=== PATIENT | female | born 2000 | race Caucasian/White ===

== ENCOUNTER 2019-10-01 12:32 | Inpatient (IN) | payer OTHER ==
[2019-10-01] MEDS ORDERED: Ondansetron 4 MG/2 ML SDV IVPUSH ONE ×2 (12:47→16:35)
[2019-10-01] MEDS ORDERED: Morphine 4 MG/ML Syringe IVPUSH ONE (12:47)
[2019-10-01] MEDS ORDERED: Sodium Chloride 0.9% 1,000 ML IV ONE ×2 (12:47→15:23)
--- NOTE | 2019-10-01 12:50 | EDM.PDOC ---
ED HPI GENERAL MEDICAL PROBLEM - General Chief Complaint: Gastrointestinal Problem Stated Complaint: PAIN IN RIGHT SIDE/VOMITING/CHILLS Time Seen by Provider: 10/01/19 12:43 Source of Information: Reports: Patient, Family History Limitations: Reports: No Limitations - History of Present Illness INITIAL COMMENTS - FREE TEXT/NARRATIVE: Patient's unfortunate 18-year-old female who presents emergency Department today with complaint of right-sided abdominal pain. Patient reports that symptoms started 2 days ago and progressively worsened since last night patient started running fever today she's been vomiting and not able to keep any food or fluids down. No cough congestion runny nose shortness of breath. The pain as a sharp stabbing type pain pain is improved with heating pad worsened with movement and/or palpation and/or eating Right Abdomen Pain Score (Numeric/FACES): 8 - Related Data Allergies Allergy/AdvReac Type Severity Reaction Status Date / Time No Known Allergies Allergy Verified 10/01/19 12:47 Home Meds: Home Meds . [No Known Home Meds] 10/01/19 [History] ED ROS GENERAL - Review of Systems Review Of Systems: See Below Constitutional: Reports: Fever, Chills GI/Abdominal: Reports: Abdominal Pain, Nausea, Vomiting. Denies: Diarrhea, Hematemesis, Hematochezia, Melena : Denies: Discharge, Dysuria, Hematuria, Incontinence ED EXAM, GI/ABD - Physical Exam Exam: See Below Exam Limited By: No Limitations General Appearance: Alert, WD/WN, Moderate Distress Ears: Normal External Exam, Normal Canal, Hearing Grossly Normal, Normal TMs Throat/Mouth: Normal Inspection, Normal Lips, Normal Teeth, Normal Gums, Normal Oropharynx, Normal Voice, No Airway Compromise Head: Atraumatic, Normocephalic Neck: Normal Inspection, Supple, Non-Tender, Full Range of Motion Respiratory/Chest: No Respiratory Distress, Lungs Clear, Normal Breath Sounds, No Accessory Muscle Use, Chest Non-Tender Cardiovascular: Normal Peripheral Pulses GI/Abdominal Exam: Normal Bowel Sounds, Soft, Tender (Moderate right lower quadrant. Positive McBurney's tenderness, positive rebound tenderness, positive psoas, positive obturator) Back Exam: Normal Inspection Extremities: Normal Inspection Neurological: Alert Skin Exam: Warm, Dry, No Rash Course - Vital Signs Last Recorded V/S: Last Vital Signs Temp 100.6 F 10/01/19 12:43 Pulse 100 10/01/19 12:43 Resp 14 10/01/19 12:43 BP 116/102 H 10/01/19 12:43 Pulse Ox 100 10/01/19 12:43 - Orders/Labs/Meds Orders: Active Orders 24 hr Category Date Time Status NPO [Nothing Per Oral Diet] [DIET] Diet 10/01/19 Dinner Active CULTURE URINE [RM] Stat Lab 10/01/19 13:21 Received Sodium Chloride 0.9% [Saline Flush] Med 10/01/19 12:47 Active 10 ml FLUSH ASDIRECTED PRN cefTRIAXone [Rocephin] 2 gm Med 10/01/19 15:17 Ordered Sodium Chloride 0.9% [Normal Saline] 100 ml IV ONETIME Saline Lock Insert [OM.PC] Stat Oth 10/01/19 12:47 Ordered Medication Orders Sodium Chloride (Saline Flush) 10 ml FLUSH ASDIRECTED PRN PRN Reason: Keep Vein Open Last Admin: 10/01/19 14:38 Dose: 10 ml Admin: 10/01/19 12:59 Dose: 10 ml Labs: Laboratory Tests 10/01/19 10/01/19 10/01/19 Range/Units 12:55 12:55 12:55 WBC 26.83 H (3.98-10.04) K/mm3 RBC 5.02 (3.98-5.22) M/mm3 Hgb 14.5 D (11.2-15.7) gm/dl Hct 43.0 (34.1-44.9) % MCV 85.7 (79.4-94.8) fl MCH 28.9 (25.6-32.2) pg MCHC 33.7 (32.2-35.5) g/dl RDW Std Deviation 42.3 (36.4-46.3) fL Plt Count 244 (182-369) K/mm3 MPV 10.1 (9.4-12.3) fl Neut % (Auto) 92.4 H (34.0-71.1) % Lymph % (Auto) 1.9 L (19.3-51.7) % [place] % (Auto) 5.3 (4.7-12.5) % Eos % (Auto) 0 L (0.7-5.8) Baso % (Auto) 0.1 (0.1-1.2) % Neut # (Auto) 24.80 H (1.56-6.13) K/mm3 Lymph # (Auto) 0.50 L (1.18-3.74) K/mm3 [place] # (Auto) 1.43 H (0.24-0.36) K/mm3 Eos # (Auto) 0.00 L (0.04-0.36) K/mm3 Baso # (Auto) 0.02 (0.01-0.08) K/mm3 Manual Slide Review Abnormal smear Sodium 138 (136-145) mEq/L Potassium 3.9 (3.5-5.1) mEq/L Chloride 100 (98-107) mEq/L Carbon Dioxide 25 (21-32) mEq/L Anion Gap 16.9 H (5-15) BUN 13 (7-18) mg/dL Creatinine 1.2 H (0.55-1.02) mg/dL Est Cr Clr Drug Dosing 65.11 mL/min Estimated GFR (MDRD) 58 (>60) mL/min BUN/Creatinine Ratio 10.8 L (14-18) Glucose 153 H (74-106) mg/dL Calcium 9.5 (8.5-10.1) mg/dL Total Bilirubin 0.8 (0.2-1.0) mg/dL AST 17 (15-37) U/L ALT 22 (14-59) U/L Alkaline Phosphatase 62 (46-116) U/L Total Protein 8.5 H (6.4-8.2) g/dl Albumin 4.0 (3.4-5.0) g/dl Globulin 4.5 gm/dL Albumin/Globulin Ratio 0.9 L (1-2) HCG, Qual Negative (NEGATIVE) Urine Color (Yellow) Urine Appearance (Clear) Urine pH (5.0-8.0) Ur Specific [place] (1.005-1.030) Urine Protein (Negative) Urine Glucose (UA) (Negative) Urine Ketones (Negative) Urine Occult Blood (Negative) Urine Nitrite (Negative) Urine Bilirubin (Negative) Urine Urobilinogen (0.2-1.0) Ur Leukocyte Esterase (Negative) Urine RBC (0-5) /hpf Urine WBC (0-5) /hpf Ur Epithelial Cells (0-5) /hpf Urine Bacteria (FEW) /hpf Urine Mucus (FEW) /hpf 10/01/19 Range/Units 13:21 WBC (3.98-10.04) K/mm3 RBC (3.98-5.22) M/mm3 Hgb (11.2-15.7) gm/dl Hct (34.1-44.9) % MCV (79.4-94.8) fl MCH (25.6-32.2) pg MCHC (32.2-35.5) g/dl RDW Std Deviation (36.4-46.3) fL Plt Count (182-369) K/mm3 MPV (9.4-12.3) fl Neut % (Auto) (34.0-71.1) % Lymph % (Auto) (19.3-51.7) % [place] % (Auto) (4.7-12.5) % Eos % (Auto) (0.7-5.8) Baso % (Auto) (0.1-1.2) % Neut # (Auto) (1.56-6.13) K/mm3 Lymph # (Auto) (1.18-3.74) K/mm3 [place] # (Auto) (0.24-0.36) K/mm3 Eos # (Auto) (0.04-0.36) K/mm3 Baso # (Auto) (0.01-0.08) K/mm3 Manual Slide Review Sodium (136-145) mEq/L Potassium (3.5-5.1) mEq/L Chloride (98-107) mEq/L Carbon Dioxide (21-32) mEq/L Anion Gap (5-15) BUN (7-18) mg/dL Creatinine (0.55-1.02) mg/dL Est Cr Clr Drug Dosing mL/min Estimated GFR (MDRD) (>60) mL/min BUN/Creatinine Ratio (14-18) Glucose (74-106) mg/dL Calcium (8.5-10.1) mg/dL Total Bilirubin (0.2-1.0) mg/dL AST (15-37) U/L ALT (14-59) U/L Alkaline Phosphatase (46-116) U/L Total Protein (6.4-8.2) g/dl Albumin (3.4-5.0) g/dl Globulin gm/dL Albumin/Globulin Ratio (1-2) HCG, Qual (NEGATIVE) Urine Color Yellow (Yellow) Urine Appearance Slt cloudy H (Clear) Urine pH 8.5 H (5.0-8.0) Ur Specific [place] 1.020 (1.005-1.030) Urine Protein 2+ H (Negative) Urine Glucose (UA) Negative (Negative) Urine Ketones 1+ H (Negative) Urine Occult Blood 1+ H (Negative) Urine Nitrite Positive H (Negative) Urine Bilirubin Negative (Negative) Urine Urobilinogen 1.0 (0.2-1.0) Ur Leukocyte Esterase 1+ H (Negative) Urine RBC 50-75 H (0-5) /hpf Urine WBC >100 H (0-5) /hpf Ur Epithelial Cells 10-20 H (0-5) /hpf Urine Bacteria Moderate H (FEW) /hpf Urine Mucus Few (FEW) /hpf Meds: Medications Generic Name Dose Route Start Last Admin Trade Name Freq PRN Reason Stop Dose Admin Sodium Chloride 10 ml 10/01/19 12:47 10/01/19 14:38 Saline Flush FLUSH 10 ml ASDIRECTED PRN Administration Keep Vein Open Discontinued Medications Generic Name Dose Route Start Last Admin Trade Name Freq PRN Reason Stop Dose Admin Diatrizoate Meglum/Diatrizoate Sod 90 ml 10/01/19 14:23 10/01/19 14:38 Gastrografin 37% PO 10/01/19 14:24 90 ml ONETIME ONE Administration Hydromorphone HCl 0.5 mg 10/01/19 14:14 10/01/19 14:20 Dilaudid IVPUSH 10/01/19 14:15 0.5 mg ONETIME ONE Administration Hydromorphone HCl 0.5 mg 10/01/19 14:47 10/01/19 14:54 Dilaudid IVPUSH 10/01/19 14:48 0.5 mg ONETIME ONE Administration Sodium Chloride 1,000 mls @ 1,000 mls/hr 10/01/19 12:47 10/01/19 12:58 Normal Saline IV 10/01/19 13:46 1,000 mls/hr ONETIME ONE Administration Piperacillin Sod/Tazobactam 100 mls @ 200 mls/hr 10/01/19 13:50 10/01/19 14: 11 Sod 3.375 gm/ Sodium Chloride IV 10/01/19 14:19 200 mls/hr ONETIME ONE Administration Iopamidol 100 ml 10/01/19 14:23 10/01/19 14:38 Isovue-300 (61%) IVPUSH 10/01/19 14:24 100 ml ONETIME ONE Administration Morphine Sulfate 4 mg 10/01/19 12:47 10/01/19 13:01 Morphine IVPUSH 10/01/19 12:48 4 mg ONETIME ONE Administration Ondansetron HCl 4 mg 10/01/19 12:47 10/01/19 12:59 Zofran IVPUSH 10/01/19 12:48 4 mg ONETIME ONE Administration - Re-Assessments/Exams Free Text/Narrative Re-Assessment/Exam: 10/01/19 15:13 The abdomen is soft and pelvis shows"Heterogenous enhancement throughout the right kidney with mild surrounding inflammatory change. Findings are compatible with fairly severe right-sided polynephritis." Free Text/Narrative Re-Assessment/Exam: 10/01/19 15:[address] Alfaro who agrees to admit patient to inpatient services Departure - Departure Time of Disposition: 15:18 Disposition: Admitted As Inpatient 65 Clinical Impression: Pyelonephritis - Discharge Information Referrals: PCP,None [Primary Care Provider] - Forms: ED Department Discharge Sepsis Event Note - Evaluation Sepsis Screening Result: No Definite Risk - Focused Exam Vital Signs: Vital Signs Temp Pulse Resp BP Pulse Ox 10/01/19 12:43 100.6 F 100 14 116/102 H 100 Date Exam was Performed: 10/01/19 Time Exam was Performed: 15:18 - My Orders Last 24 Hours: My Active Orders 10/01/19 12:47 Sodium Chloride 0.9% [Saline Flush] 10 ml FLUSH ASDIRECTED PRN Saline Lock Insert [OM.PC] Stat 10/01/19 13:21 CULTURE URINE [RM] Stat 10/01/19 15:17 cefTRIAXone [Rocephin] 2 gm Sodium Chloride 0.9% [Normal Saline] 100 ml IV ONETIME 10/01/19 Dinner NPO [Nothing Per Oral Diet] [DIET] - Assessment/Plan Last 24 Hours: My Active Orders 10/01/19 12:47 Sodium Chloride 0.9% [Saline Flush] 10 ml FLUSH ASDIRECTED PRN Saline Lock Insert [OM.PC] Stat 10/01/19 13:21 CULTURE URINE [RM] Stat 10/01/19 15:17 cefTRIAXone [Rocephin] 2 gm Sodium Chloride 0.9% [Normal Saline] 100 ml IV ONETIME 10/01/19 Dinner NPO [Nothing Per Oral Diet] [DIET]
[2019-10-01] MEDS: Sodium Chloride 0.9% 10 ML Syringe FLUSH PRN ×2 (12:59→14:38)
[2019-10-01] MEDS ORDERED: Piperacillin/Tazobactam 3.375 GM in Sodium Chloride 0.9% 100 ML IV ONE (13:50)
[2019-10-01] MEDS ORDERED: HYDROmorphone 0.5 MG/0.5 ML Syringe IVPUSH ONE ×2 (14:14→14:47)
[2019-10-01] MEDS ORDERED: Iopamidol 612 MG/ML 100 ML Bottle IVPUSH ONE (14:23)
[2019-10-01] MEDS ORDERED: Diatrizoate Meglumine/Diatrizoate Sodium 37% 120 ML Bottle PO ONE (14:23)
--- NOTE | 2019-10-01 15:05 | CT ---
CT abdomen and pelvis Technique: Multiple axial sections were obtained from above the dome of the diaphragm inferiorly through the pubic symphysis. Intravenous and oral contrast was utilized. Delayed images were obtained through the bladder. Comparison: No prior abdominal imaging is available. Findings: Heterogeneous enhancement is noted within the right kidney compatible with fairly severe pyelonephritis. Mild inflammatory change is also noted around portions of the lower right kidney. Left kidney is normal. Other findings: Visualized lung bases show nothing acute. Noncontrast appearance of the liver and spleen shows no focal abnormality. Gallbladder contains no calcified gallstones. Adrenal glands show no nodule. Pancreas appears within normal limits. Aorta shows no aneurysm. No retroperitoneal adenopathy or mesenteric abnormalities are seen. Appendix is visualized and is normal. IUD is present within the uterus. No free fluid or inflammatory change is seen within the abdomen. Delayed images shows contrast within the distal ureters and within the bladder. Bone window settings were reviewed. Incidental limbus vertebra noted within the anterior and superior endplate of L5. Nothing acute is appreciated within the visualized osseous structures. Impression: 1. Heterogeneous enhancement throughout the right kidney with mild surrounding inflammatory change. Findings are compatible with fairly severe right-sided pyelonephritis. 2. No other acute finding is seen on CT study of the abdomen and pelvis. Diagnostic code #3 This report was dictated in [place] Standard Time
[2019-10-01] MEDS ORDERED: cefTRIAXone 2 GM in Sodium Chloride 0.9% 100 ML IV ONE (15:17)
[2019-10-01] MEDS ORDERED: HYDROmorphone 1 MG/ML Syringe IVPUSH ONE (16:34)
[2019-10-01] MEDS ORDERED: Ketorolac 15 MG/ML SDV IVPUSH PRN (17:14)
[2019-10-01] MEDS ORDERED: Ondansetron 4 MG/2 ML SDV IV PRN (17:14)
--- NOTE | 2019-10-01 17:19 | PCM.HP.2 ---
H&P History of Present Illness - General Date of Service: 10/01/19 Admit Problem/Dx: Admission Diagnosis/Problem Admission Diagnosis/Problem Pyelonephritis - History of Present Illness Initial Comments - Free Text/Narative: 18-year-old female that presented to the emergency room this afternoon with right lower quadrant and flank pain with chills. Patient states that on Wednesday she developed a fever of 103, right lower quadrant and flank pain, and then on Wednesday started developing chills. She denies any dysuria, urinary frequency, or hematuria. She states on Wednesday night, Wednesday morning she developed vomiting and vomited into the supervisor of instruction on Wednesday. This is when she did present herself to the emergency room. She states that she has been unable to keep any food or fluids down for the last 24+ hours. Patient complains of severe lower abdominal pain. Patient is sexually active. She has a Mirena in place for control. Menstrual period in May. In the emergency room she was found to have a positive UA with greater than 100 WBCs per high-power field, positive nitrites, 10-20 epithelial cells, moderate bacteria, and 50-[address] scan done of the abdomen and pelvis showed impression: 1. Heterogeneous enhancement throughout the right kidney with mild surrounding inflammatory change. Findings are compatible with fairly severe right-sided pyelonephritis. 2. No other acute finding is seen on CT study of the abdomen and pelvis. Other pertinent positives include: WBC 26.83 with 24.8 absolute neutrophils and 92.4% neutrophils, creatinine 1.2 with an estimated GFR 58. Pertinent negative includes negative hCG, normal liver function tests, hemoglobin 14.5, platelets of 244. In the emergency room patient was given Zosyn and ceftriaxone. She was also given 2 L normal saline boluses and started on 100 mL of normal saline per hour. Patient was also given Dilaudid and morphine for her pain which did not seem to help her pain. Lactic acid was not drawn. Right Abdomen Pain Score (Numeric/FACES): 8 - Related Data Allergies/Adverse Reactions: Allergies Allergy/AdvReac Type Severity Reaction Status Date / Time No Known Allergies Allergy Verified 10/01/19 12:47 Home Medications: Home Meds . [No Known Home Meds] 10/01/19 [History] Past Medical History - Past Health History Medical/Surgical History: Denies Medical/Surgical History Other Musculoskeletal History: scolois Neurological History: Reports: None Social & Family History - Family History Family Medical History: Noncontributory - Tobacco Use Smoking Status *Q: Current Every Day Smoker Years of Tobacco use: 2 Packs/Tins Daily: 0.5 Used Tobacco, but Quit: No Second Hand Smoke Exposure: No - Caffeine Use Caffeine Use: Reports: None - Alcohol Use Days Per Week of Alcohol Use: 0 Number of Drinks Per Day: 2 Total Drinks Per Week: 0 - Recreational Drug Use Recreational Drug Use: Yes Recreational Drug Type: Reports: Marijuana/Hashish Other Recreational Drug Type: daily last on on 09/30/19 at 1500 Recreational Drug Use Frequency: Daily H&P Review of Systems - Review of Systems: Review Of Systems: Comprehensive ROS is negative, except as noted in HPI. Exam - Exam Exam: See Below - Vital Signs Vital Signs: Last Vital Signs Temp 100.6 F 10/01/19 12:43 Pulse 100 10/01/19 12:43 Resp 14 10/01/19 12:43 BP 116/102 H 10/01/19 12:43 Pulse Ox 100 10/01/19 12:43 Weight: 130 lb 11.2 oz - Exam General: Alert, Oriented, 4 HEENT: Conjunctiva Clear, EOMI, Hearing Intact, Mucosa Moist & [place], Pupils Equal Neck: Supple, Trachea Midline, 2 Lungs: Clear to Auscultation, Normal Respiratory Effort Cardiovascular: Regular Rate, Regular Rhythm, Normal S1, Normal S2 GI/Abdominal Exam: Soft, No Distention, Tender (Right lower quadrant tenderness with CVA tenderness on the right.), Abnormal Bowel Sounds (Diffusely decreased) Back Exam: Normal Inspection Extremities: Normal Inspection, Normal Range of Motion, Non-Tender, No Pedal Edema, Normal Capillary Refill Skin: Warm, Dry, Intact Neuro Extensive - Mental Status: Alert, Oriented x3, Normal Mood/Affect, Normal Cognition, Memory Intact Neuro Extensive - Motor, Sensory, Reflexes: CN II-XII Intact, Normal Gait Psychiatric: Alert, Normal Affect, Normal Mood - Patient Data Lab Results Last 24 hrs: Laboratory Results - last 24 hr 10/01/19 10/01/19 10/01/19 Range/Units 12:55 12:55 12:55 WBC 26.83 H (3.98-10.04) K/mm3 RBC 5.02 (3.98-5.22) M/mm3 Hgb 14.5 D (11.2-15.7) gm/dl Hct 43.0 (34.1-44.9) % MCV 85.7 (79.4-94.8) fl MCH 28.9 (25.6-32.2) pg MCHC 33.7 (32.2-35.5) g/dl RDW Std Deviation 42.3 (36.4-46.3) fL Plt Count 244 (182-369) K/mm3 MPV 10.1 (9.4-12.3) fl Neut % (Auto) 92.4 H (34.0-71.1) % Lymph % (Auto) 1.9 L (19.3-51.7) % [place] % (Auto) 5.3 (4.7-12.5) % Eos % (Auto) 0 L (0.7-5.8) Baso % (Auto) 0.1 (0.1-1.2) % Neut # (Auto) 24.80 H (1.56-6.13) K/mm3 Lymph # (Auto) 0.50 L (1.18-3.74) K/mm3 [place] # (Auto) 1.43 H (0.24-0.36) K/mm3 Eos # (Auto) 0.00 L (0.04-0.36) K/mm3 Baso # (Auto) 0.02 (0.01-0.08) K/mm3 Manual Slide Review Abnormal smear Sodium 138 (136-145) mEq/L Potassium 3.9 (3.5-5.1) mEq/L Chloride 100 (98-107) mEq/L Carbon Dioxide 25 (21-32) mEq/L Anion Gap 16.9 H (5-15) BUN 13 (7-18) mg/dL Creatinine 1.2 H (0.55-1.02) mg/dL Est Cr Clr Drug Dosing 65.11 mL/min Estimated GFR (MDRD) 58 (>60) mL/min BUN/Creatinine Ratio 10.8 L (14-18) Glucose 153 H (74-106) mg/dL Calcium 9.5 (8.5-10.1) mg/dL Total Bilirubin 0.8 (0.2-1.0) mg/dL AST 17 (15-37) U/L ALT 22 (14-59) U/L Alkaline Phosphatase 62 (46-116) U/L Total Protein 8.5 H (6.4-8.2) g/dl Albumin 4.0 (3.4-5.0) g/dl Globulin 4.5 gm/dL Albumin/Globulin Ratio 0.9 L (1-2) HCG, Qual Negative (NEGATIVE) Urine Color (Yellow) Urine Appearance (Clear) Urine pH (5.0-8.0) Ur Specific [place] (1.005-1.030) Urine Protein (Negative) Urine Glucose (UA) (Negative) Urine Ketones (Negative) Urine Occult Blood (Negative) Urine Nitrite (Negative) Urine Bilirubin (Negative) Urine Urobilinogen (0.2-1.0) Ur Leukocyte Esterase (Negative) Urine RBC (0-5) /hpf Urine WBC (0-5) /hpf Ur Epithelial Cells (0-5) /hpf Urine Bacteria (FEW) /hpf Urine Mucus (FEW) /hpf 10/01/ Range/Units 13:21 WBC (3.98-10.04) K/mm3 RBC (3.98-5.22) M/mm3 Hgb (11.2-15.7) gm/dl Hct (34.1-44.9) % MCV (79.4-94.8) fl MCH (25.6-32.2) pg MCHC (32.2-35.5) g/dl RDW Std Deviation (36.4-46.3) fL Plt Count (182-369) K/mm3 MPV (9.4-12.3) fl Neut % (Auto) (34.0-71.1) % Lymph % (Auto) (19.3-51.7) % [place] % (Auto) (4.7-12.5) % Eos % (Auto) (0.7-5.8) Baso % (Auto) (0.1-1.2) % Neut # (Auto) (1.56-6.13) K/mm3 Lymph # (Auto) (1.18-3.74) K/mm3 [place] # (Auto) (0.24-0.36) K/mm3 Eos # (Auto) (0.04-0.36) K/mm3 Baso # (Auto) (0.01-0.08) K/mm3 Manual Slide Review Sodium (136-145) mEq/L Potassium (3.5-5.1) mEq/L Chloride (98-107) mEq/L Carbon Dioxide (21-32) mEq/L Anion Gap (5-15) BUN (7-18) mg/dL Creatinine (0.55-1.02) mg/dL Est Cr Clr Drug Dosing mL/min Estimated GFR (MDRD) (>60) mL/min BUN/Creatinine Ratio (14-18) Glucose (74-106) mg/dL Calcium (8.5-10.1) mg/dL Total Bilirubin (0.2-1.0) mg/dL AST (15-37) U/L ALT (14-59) U/L Alkaline Phosphatase (46-116) U/L Total Protein (6.4-8.2) g/dl Albumin (3.4-5.0) g/dl Globulin gm/dL Albumin/Globulin Ratio (1-2) HCG, Qual (NEGATIVE) Urine Color Yellow (Yellow) Urine Appearance Slt cloudy H (Clear) Urine pH 8.5 H (5.0-8.0) Ur Specific [place] 1.020 (1.005-1.030) Urine Protein 2+ H (Negative) Urine Glucose (UA) Negative (Negative) Urine Ketones 1+ H (Negative) Urine Occult Blood 1+ H (Negative) Urine Nitrite Positive H (Negative) Urine Bilirubin Negative (Negative) Urine Urobilinogen 1.0 (0.2-1.0) Ur Leukocyte Esterase 1+ H (Negative) Urine RBC 50-75 H (0-5) /hpf Urine WBC >100 H (0-5) /hpf Ur Epithelial Cells 10-20 H (0-5) /hpf Urine Bacteria Moderate H (FEW) /hpf Urine Mucus Few (FEW) /hpf Result Diagrams: 10/01/19 12:55 10/01/19 12:55 Sepsis Event Note - Evaluation Sepsis Screening Result: No Definite Risk - Focused Exam Vital Signs: Vital Signs Temp Pulse Resp BP Pulse Ox 10/01/19 12:43 100.6 F 100 14 116/102 H 100 Date Exam was Performed: 10/01/19 Time Exam was Performed: 17:58 Problem List Initiated/Reviewed/Updated: Yes Orders Last 24hrs: Active Orders 24 hr Category Date Time Status Patient Status [ADT] Routine ADT 10/01/19 15:29 Active Oxygen Therapy [RC] PRN Care 10/01/19 17:13 Ordered Up ad Whitney [RC] ASDIRECTED Care 10/01/19 17:12 Ordered VTE/DVT Education [RC] PER UNIT ROUTINE Care 10/01/19 17:13 Ordered Vital Signs [RC] Q4H Care 10/01/19 17:13 Ordered Clear Liquid Diet [DIET] Diet 10/01/19 Dinner Ordered C-REACTIVE PROTEIN [CHEM] AM Lab 10/02/19 05:11 Ordered C-REACTIVE PROTEIN [CHEM] AM Lab 10/03/19 05:11 Ordered C-REACTIVE PROTEIN [CHEM] AM Lab 10/04/19 05:11 Ordered C-REACTIVE PROTEIN [CHEM] AM Lab 10/05/19 05:11 Ordered C-REACTIVE PROTEIN [CHEM] AM Lab 10/06/19 05:11 Ordered CBC WITH AUTO DIFF [HEME] AM Lab 10/02/19 05:11 Ordered CBC WITH AUTO DIFF [HEME] AM Lab 10/03/19 05:11 Ordered CBC WITH AUTO DIFF [HEME] AM Lab 10/04/19 05:11 Ordered CBC WITH AUTO DIFF [HEME] AM Lab 10/05/19 05:11 Ordered CBC WITH AUTO DIFF [HEME] AM Lab 10/06/19 05:11 Ordered COMPREHENSIVE METABOLIC PN,CMP [CHEM] AM Lab 10/02/19 05:11 Ordered COMPREHENSIVE METABOLIC PN,CMP [CHEM] AM Lab 10/03/19 05:11 Ordered COMPREHENSIVE METABOLIC PN,CMP [CHEM] AM Lab 10/04/19 05:11 Ordered COMPREHENSIVE METABOLIC PN,CMP [CHEM] AM Lab 10/05/19 05:11 Ordered COMPREHENSIVE METABOLIC PN,CMP [CHEM] AM Lab 10/06/19 05:11 Ordered CULTURE URINE [RM] Stat Lab 10/01/19 13:21 Received GC/CHLAMYDIA BY PCR [MOLEC] Routine Lab 10/01/19 17:17 Ordered MAGNESIUM [CHEM] AM Lab 10/02/19 05:11 Ordered MAGNESIUM [CHEM] AM Lab 10/03/19 05:11 Ordered MAGNESIUM [CHEM] AM Lab 10/04/19 05:11 Ordered MAGNESIUM [CHEM] AM Lab 10/05/19 05:11 Ordered MAGNESIUM [CHEM] AM Lab 10/06/19 05:11 Ordered Acetaminophen [Tylenol] Med 10/01/19 17:15 Ordered 650 mg PO Q6H HYDROmorphone [Dilaudid] Med 10/01/19 17:14 Ordered 1 mg IVPUSH Q2H PRN Ketorolac [Toradol] Med 10/01/19 17:14 Ordered 15 mg IV Q6H PRN Ondansetron [Zofran] Med 10/01/19 17:14 Ordered 4 mg IV Q4H PRN Sodium Chloride 0.9% [Saline Flush] Med 10/01/19 12:47 Active 10 ml FLUSH ASDIRECTED PRN Saline Lock Insert [OM.PC] Stat Oth 10/01/19 12:47 Ordered Resuscitation Status Routine Resus Stat 10/01/19 17:12 Ordered Medication Orders Acetaminophen (Tylenol) 650 mg PO Q6H SEAN Stop: 10/02/19 16:00 Hydromorphone HCl (Dilaudid) 1 mg IVPUSH Q2H PRN PRN Reason: Pain (severe 7-10) Ketorolac Tromethamine (Toradol) 15 mg IV Q6H PRN PRN Reason: Pain (moderate 4-6) Ondansetron HCl (Zofran) 4 mg IV Q4H PRN PRN Reason: Nausea/Vomiting Sodium Chloride (Saline Flush) 10 ml FLUSH ASDIRECTED PRN PRN Reason: Keep Vein Open Last Admin: 10/01/19 14:38 Dose: 10 ml Admin: 10/01/19 12:59 Dose: 10 ml Assessment/Plan Comment:: Assessment * Right sided pyelonephritis * Initial WBC 26.8, UA greater than 100 WBC per high-power field with moderate bacteria, temperature 100.8, anion gap 16.9 * CT of the abdomen: Heterogeneous enhancement throughout the right kidney with mild surrounding inflammatory change. Findings are compatible with fairly severe right-sided pyelonephritis. * Urine done in the emergency room * Blood cultures were not done * Given Rocephin and Zosyn in the emergency room * Anion gap metabolic acidosis * Secondary to pyelonephritis * Acute kidney injury * Likely prerenal due to poor oral intake * Initial BUN 13, creatinine 1.2, estimated GFR 58 Plan * Admit to medical floor * Continue Rocephin 1 g IV every 24 hours * Will hold off on blood cultures unless she develops another fever. * Dilaudid, Toradol, and Tylenol for pain. * Toradol will be dose of 15 mg secondary to her acute kidney injury. Because her acute kidney injury is likely due to poor oral intake there should be very little danger of Toradol worsening her kidney function. We will follow it very closely. * Await urinary culture * Follow CBC, CMP, and C-reactive protein daily until stable * Get lactic acid * Continue IV fluids: Normal saline 100 mL/h until good oral intake * Clear liquid diet * VTE prophylaxis not indicated: VTE score 0 * CODE STATUS: Full code * Length of stay likely 2 to 3 days. - Mortality Measure Prognosis:: Good
[2019-10-01] MEDS: Acetaminophen 325 MG Tab PO SCH ×2 (18:09→23:29)
[2019-10-01 19:42] LABS: C. TRACHOMATIS BY PCR DETECTED; N. GONORRHOEAE BY PCR NOT DETECTED
[2019-10-01] MEDS: HYDROmorphone 0.5 MG/0.5 ML Syringe IVPUSH PRN (19:42)
--- NOTE | 2019-10-01 20:05 | PCM.SN ---
- Free Text/Narrative Note: Her Chlamydia screen did come back positive. She will be started on doxycycline 100 mg twice daily secondary to contraindication of azithromycin with Zofran.
[2019-10-01] MEDS: Doxycycline 100 MG in Sodium Chloride 0.9% 100 ML IV SCH (21:08)
[2019-10-02] MEDS: Acetaminophen 325 MG Tab PO SCH ×2 (05:40→10:14)
--- NOTE | 2019-10-02 08:12 | PCM.PN ---
- General Info Date of Service: 10/02/19 Admission Dx/Problem (Free Text): Admission Diagnosis/Problem Admission Diagnosis/Problem Pyelonephritis Functional Status: Reports: Pain Controlled, Tolerating Diet, Ambulating, Urinating. Denies: New Symptoms - Review of Systems General: Reports: No Symptoms. Denies: Fever, Weakness, Fatigue, Malaise, Chills HEENT: Reports: No Symptoms. Denies: Headaches, Sore Throat Pulmonary: Reports: No Symptoms. Denies: Shortness of Breath, Pleuritic Chest Pain, Cough, Sputum, Wheezing Cardiovascular: Reports: No Symptoms. Denies: Chest Pain, Palpitations, Dyspnea on Exertion, Edema Gastrointestinal: Reports: Abdominal Pain (right sided ). Denies: Constipation , Diarrhea, Nausea, Vomiting Genitourinary: Reports: No Symptoms. Denies: Pain Musculoskeletal: Reports: No Symptoms Skin: Reports: No Symptoms Neurological: Reports: No Symptoms. Denies: Confusion, Difficulty Walking, Gait Disturbance Psychiatric: Reports: No Symptoms - Patient Data Vitals - Most Recent: Last Vital Signs Temp 98.2 F 10/01/19 21:15 Pulse 56 L 10/02/19 05:43 Resp 18 10/02/19 05:43 BP 116/77 10/02/19 05:43 Pulse Ox 97 10/02/19 05:43 Weight - Most Recent: 128 lb I&O - Last 24 Hours: Intake & Output 10/01/19 10/02/19 10/02/19 22:59 06:59 14:59 Intake Total 120 1600 Balance 120 1600 Lab Results Last 24 Hours: Laboratory Results - last 24 hr 10/01/19 10/01/19 10/01/19 Range/Units 12:55 12:55 12:55 WBC 26.83 H (3.98-10.04) K/mm3 RBC 5.02 (3.98-5.22) M/mm3 Hgb 14.5 D (11.2-15.7) gm/dl Hct 43.0 (34.1-44.9) % MCV 85.7 (79.4-94.8) fl MCH 28.9 (25.6-32.2) pg MCHC 33.7 (32.2-35.5) g/dl RDW Std Deviation 42.3 (36.4-46.3) fL Plt Count 244 (182-369) K/mm3 MPV 10.1 (9.4-12.3) fl Neut % (Auto) 92.4 H (34.0-71.1) % Lymph % (Auto) 1.9 L (19.3-51.7) % [place] % (Auto) 5.3 (4.7-12.5) % Eos % (Auto) 0 L (0.7-5.8) Baso % (Auto) 0.1 (0.1-1.2) % Neut # (Auto) 24.80 H (1.56-6.13) K/mm3 Lymph # (Auto) 0.50 L (1.18-3.74) K/mm3 [place] # (Auto) 1.43 H (0.24-0.36) K/mm3 Eos # (Auto) 0.00 L (0.04-0.36) K/mm3 Baso # (Auto) 0.02 (0.01-0.08) K/mm3 Manual Slide Review Abnormal smear Sodium 138 (136-145) mEq/L Potassium 3.9 (3.5-5.1) mEq/L Chloride 100 (98-107) mEq/L Carbon Dioxide 25 (21-32) mEq/L Anion Gap 16.9 H (5-15) BUN 13 (7-18) mg/dL Creatinine 1.2 H (0.55-1.02) mg/dL Est Cr Clr Drug Dosing 65.11 mL/min Estimated GFR (MDRD) 58 (>60) mL/min BUN/Creatinine Ratio 10.8 L (14-18) Glucose 153 H (74-106) mg/dL Lactic Acid (0.4-2.0) mmol/L Calcium 9.5 (8.5-10.1) mg/dL Magnesium (1.8-2.4) mg/dl Total Bilirubin 0.8 (0.2-1.0) mg/dL AST 17 (15-37) U/L ALT 22 (14-59) U/L Alkaline Phosphatase 62 (46-116) U/L C-Reactive Protein (<1.0) mg/dL Total Protein 8.5 H (6.4-8.2) g/dl Albumin 4.0 (3.4-5.0) g/dl Globulin 4.5 gm/dL Albumin/Globulin Ratio 0.9 L (1-2) HCG, Qual Negative (NEGATIVE) Urine Color (Yellow) Urine Appearance (Clear) Urine pH (5.0-8.0) Ur Specific [place] (1.005-1.030) Urine Protein (Negative) Urine Glucose (UA) (Negative) Urine Ketones (Negative) Urine Occult Blood (Negative) Urine Nitrite (Negative) Urine Bilirubin (Negative) Urine Urobilinogen (0.2-1.0) Ur Leukocyte Esterase (Negative) Urine RBC (0-5) /hpf Urine WBC (0-5) /hpf Ur Epithelial Cells (0-5) /hpf Urine Bacteria (FEW) /hpf Urine Mucus (FEW) /hpf C trachomatis DNA (PCR) N gonorrhoeae DNA (PCR) 10/01/19 10/01/19 10/01/19 Range/Units 13:21 17:40 17:40 WBC (3.98-10.04) K/mm3 RBC (3.98-5.22) M/mm3 Hgb (11.2-15.7) gm/dl Hct (34.1-44.9) % MCV (79.4-94.8) fl MCH (25.6-32.2) pg MCHC (32.2-35.5) g/dl RDW Std Deviation (36.4-46.3) fL Plt Count (182-369) K/mm3 MPV (9.4-12.3) fl Neut % (Auto) (34.0-71.1) % Lymph % (Auto) (19.3-51.7) % [place] % (Auto) (4.7-12.5) % Eos % (Auto) (0.7-5.8) Baso % (Auto) (0.1-1.2) % Neut # (Auto) (1.56-6.13) K/mm3 Lymph # (Auto) (1.18-3.74) K/mm3 [place] # (Auto) (0.24-0.36) K/mm3 Eos # (Auto) (0.04-0.36) K/mm3 Baso # (Auto) (0.01-0.08) K/mm3 Manual Slide Review Sodium (136-145) mEq/L Potassium (3.5-5.1) mEq/L Chloride (98-107) mEq/L Carbon Dioxide (21-32) mEq/L Anion Gap (5-15) BUN (7-18) mg/dL Creatinine (0.55-1.02) mg/dL Est Cr Clr Drug Dosing mL/min Estimated GFR (MDRD) (>60) mL/min BUN/Creatinine Ratio (14-18) Glucose (74-106) mg/dL Lactic Acid 1.0 (0.4-2.0) mmol/L Calcium (8.5-10.1) mg/dL Magnesium (1.8-2.4) mg/dl Total Bilirubin (0.2-1.0) mg/dL AST (15-37) U/L ALT (14-59) U/L Alkaline Phosphatase (46-116) U/L C-Reactive Protein (<1.0) mg/dL Total Protein (6.4-8.2) g/dl Albumin (3.4-5.0) g/dl Globulin gm/dL Albumin/Globulin Ratio (1-2) HCG, Qual (NEGATIVE) Urine Color Yellow (Yellow) Urine Appearance Slt cloudy H (Clear) Urine pH 8.5 H (5.0-8.0) Ur Specific [place] 1.020 (1.005-1.030) Urine Protein 2+ H (Negative) Urine Glucose (UA) Negative (Negative) Urine Ketones 1+ H (Negative) Urine Occult Blood 1+ H (Negative) Urine Nitrite Positive H (Negative) Urine Bilirubin Negative (Negative) Urine Urobilinogen 1.0 (0.2-1.0) Ur Leukocyte Esterase 1+ H (Negative) Urine RBC 50-75 H (0-5) /hpf Urine WBC >100 H (0-5) /hpf Ur Epithelial Cells 10-20 H (0-5) /hpf Urine Bacteria Moderate H (FEW) /hpf Urine Mucus Few (FEW) /hpf C trachomatis DNA (PCR) Detected H N gonorrhoeae DNA (PCR) Not detected 10/01/19 10/02/19 10/02/19 Range/Units 17:40 04:52 04:52 WBC 25.17 H (3.98-10.04) K/mm3 RBC 4.77 (3.98-5.22) M/mm3 Hgb 13.8 (11.2-15.7) gm/dl Hct 41.3 (34.1-44.9) % MCV 86.6 (79.4-94.8) fl MCH 28.9 (25.6-32.2) pg MCHC 33.4 (32.2-35.5) g/dl RDW Std Deviation 44.0 (36.4-46.3) fL Plt Count 218 (182-369) K/mm3 MPV 10.3 (9.4-12.3) fl Neut % (Auto) 90.7 H (34.0-71.1) % Lymph % (Auto) 2.6 L (19.3-51.7) % [place] % (Auto) 6.2 (4.7-12.5) % Eos % (Auto) 0 L (0.7-5.8) Baso % (Auto) 0.1 (0.1-1.2) % Neut # (Auto) 22.82 H (1.56-6.13) K/mm3 Lymph # (Auto) 0.66 L (1.18-3.74) K/mm3 [place] # (Auto) 1.57 H (0.24-0.36) K/mm3 Eos # (Auto) 0.00 L (0.04-0.36) K/mm3 Baso # (Auto) 0.03 (0.01-0.08) K/mm3 Manual Slide Review Abnormal smear Sodium 139 (136-145) mEq/L Potassium 3.9 (3.5-5.1) mEq/L Chloride 102 (98-107) mEq/L Carbon Dioxide 25 (21-32) mEq/L Anion Gap 15.9 H (5-15) BUN 11 (7-18) mg/dL Creatinine 1.1 H (0.55-1.02) mg/dL Est Cr Clr Drug Dosing 71.03 mL/min Estimated GFR (MDRD) > 60 (>60) mL/min BUN/Creatinine Ratio 10.0 L (14-18) Glucose 114 H (74-106) mg/dL Lactic Acid (0.4-2.0) mmol/L Calcium 9.2 (8.5-10.1) mg/dL Magnesium 2.1 (1.8-2.4) mg/dl Total Bilirubin 0.4 (0.2-1.0) mg/dL AST 19 (15-37) U/L ALT 20 (14-59) U/L Alkaline Phosphatase 64 (46-116) U/L C-Reactive Protein 18.8 H* 25.5 H* (<1.0) mg/dL Total Protein 7.3 (6.4-8.2) g/dl Albumin 3.2 L (3.4-5.0) g/dl Globulin 4.1 gm/dL Albumin/Globulin Ratio 0.8 L (1-2) HCG, Qual (NEGATIVE) Urine Color (Yellow) Urine Appearance (Clear) Urine pH (5.0-8.0) Ur Specific [place] (1.005-1.030) Urine Protein (Negative) Urine Glucose (UA) (Negative) Urine Ketones (Negative) Urine Occult Blood (Negative) Urine Nitrite (Negative) Urine Bilirubin (Negative) Urine Urobilinogen (0.2-1.0) Ur Leukocyte Esterase (Negative) Urine RBC (0-5) /hpf Urine WBC (0-5) /hpf Ur Epithelial Cells (0-5) /hpf Urine Bacteria (FEW) /hpf Urine Mucus (FEW) /hpf C trachomatis DNA (PCR) N gonorrhoeae DNA (PCR) Med Orders - Current: Current Medications Acetaminophen (Tylenol) 650 mg PO Q6H [facility] Stop: 10/02/19 16:00 Last Admin: 10/02/19 05:40 Dose: 650 mg Hydromorphone HCl (Dilaudid) 1 mg IVPUSH Q2H PRN PRN Reason: Pain (severe 7-10) Last Admin: 10/01/19 19:42 Dose: 1 mg Ceftriaxone Sodium 2 gm/ (Sodium Chloride) 100 mls @ 200 mls/hr IV Q24H [facility] Doxycycline Hyclate 100 mg/ (Sodium Chloride) 100 mls @ 100 mls/hr IV Q12HR [facility] Last Admin: 10/01/19 21:08 Dose: 100 mls/hr Ketorolac Tromethamine (Toradol) 15 mg IVPUSH Q6H PRN PRN Reason: Pain (moderate 4-6) Ondansetron HCl (Zofran) 4 mg IV Q4H PRN PRN Reason: Nausea/Vomiting Sodium Chloride (Saline Flush) 10 ml FLUSH ASDIRECTED PRN PRN Reason: Keep Vein Open Last Admin: 10/01/19 14:38 Dose: 10 ml Discontinued Medications Diatrizoate Meglum/Diatrizoate Sod (Gastrografin 37%) 90 ml PO ONETIME ONE Stop: 10/01/19 14:24 Last Admin: 10/01/19 14:38 Dose: 90 ml Hydromorphone HCl (Dilaudid) 0.5 mg IVPUSH ONETIME ONE Stop: 10/01/19 14:15 Last Admin: 10/01/19 14:20 Dose: 0.5 mg Hydromorphone HCl (Dilaudid) 0.5 mg IVPUSH ONETIME ONE Stop: 10/01/19 14:48 Last Admin: 10/01/19 14:54 Dose: 0.5 mg Hydromorphone HCl (Dilaudid) 1 mg IVPUSH ONETIME ONE Stop: 10/01/19 16:35 Last Admin: 10/01/19 18:02 Dose: Not Given Sodium Chloride (Normal Saline) 1,000 mls @ 1,000 mls/hr IV ONETIME ONE Stop: 10/01/19 13:46 Last Admin: 10/01/19 12:58 Dose: 1,000 mls/hr Piperacillin Sod/Tazobactam (Sod 3.375 gm/ Sodium Chloride) 100 mls @ 200 mls/ hr IV ONETIME ONE Stop: 10/01/19 14:19 Last Admin: 10/01/19 14:11 Dose: 200 mls/hr Ceftriaxone Sodium 2 gm/ (Sodium Chloride) 100 mls @ 200 mls/hr IV ONETIME ONE Stop: 10/01/19 15:46 Last Admin: 10/01/19 15:37 Dose: 200 mls/hr Sodium Chloride (Normal Saline) 1,000 mls @ 1,000 mls/hr IV ONETIME ONE Stop: 10/01/19 16:22 Last Admin: 10/01/19 15:37 Dose: 1,000 mls/hr Iopamidol (Isovue-300 (61%)) 100 ml IVPUSH ONETIME ONE Stop: 10/01/19 14:24 Last Admin: 10/01/19 14:38 Dose: 100 ml Morphine Sulfate (Morphine) 4 mg IVPUSH ONETIME ONE Stop: 10/01/19 12:48 Last Admin: 10/01/19 13:01 Dose: 4 mg Ondansetron HCl (Zofran) 4 mg IVPUSH ONETIME ONE Stop: 10/01/19 12:48 Last Admin: 10/01/19 12:59 Dose: 4 mg Ondansetron HCl (Zofran) 4 mg IVPUSH ONETIME ONE Stop: 10/01/19 16:36 Last Admin: 10/01/19 18:02 Dose: Not Given - Exam Quality Assessment: DVT Prophylaxis General: Alert, Oriented, Cooperative, No Acute Distress HEENT: Pupils Equal, Pupils Reactive, Mucous Membr. Moist/[place]: Supple, Trachea Midline Lungs: Clear to Auscultation, Normal Respiratory Effort Cardiovascular: Regular Rate, Regular Rhythm GI/Abdominal Exam: Normal Bowel Sounds, Soft, No Organomegaly, No Distention, No Abnormal Bruit, No Mass, Pelvis Stable, Tender (RUQ) (Female) Exam: Deferred Back Exam: Normal Inspection, Full Range of Motion, CVA Tenderness (R). No: CVA Tenderness (L) Extremities: Normal Inspection, Normal Range of Motion, Non-Tender, No Pedal Edema, Normal Capillary Refill Peripheral Pulses: 3+: Radial (L), Radial (R), Dorsalis Pedis (L), Dorsalis Pedis (R) Skin: Warm, Dry, Intact Neurological: No New Focal Deficit Psy/Mental Status: Alert, Normal Affect, Normal Mood Sepsis Event Note - Evaluation Sepsis Screening Result: No Definite Risk - Focused Exam Vital Signs: Vital Signs Temp Pulse Resp BP Pulse Ox 10/02/19 05:43 56 L 18 116/77 97 10/01/19 21:15 98.2 F 83 18 112/64 96 Date Exam was Performed: 10/02/19 Time Exam was Performed: 11:32 - Problem List & Annotations (1) Pyelonephritis SNOMED Code(s): 81136240 Code(s): N12 - TUBULO-INTERSTITIAL NEPHRITIS, NOT SPCF ACUTE OR CHRONIC Status: Acute Priority: High Current Visit: Yes (2) Chlamydia SNOMED Code(s): 788274719 Code(s): A74.9 - CHLAMYDIAL INFECTION, UNSPECIFIED Status: Acute Priority : High Current Visit: Yes (3) Marijuana abuse SNOMED Code(s): 12169168 Code(s): F12.10 - CANNABIS ABUSE, UNCOMPLICATED Status: Chronic Priority : Medium Current Visit: Yes - Problem List Review Problem List Initiated/Reviewed/Updated: Yes - Plan Plan:: Assessment * Right sided pyelonephritis * Initial WBC 26.8, UA greater than 100 WBC per high-power field with moderate bacteria, temperature 100.8, anion gap 16.9 * CT of the abdomen: Heterogeneous enhancement throughout the right kidney with mild surrounding inflammatory change. Findings are compatible with fairly severe right-sided pyelonephritis. * Urine done in the emergency room * Urin culture - Gram negative rods thus far * Blood cultures were not done prior to antibiotics being given * Given Rocephin and Zosyn in the emergency room * Anion gap metabolic acidosis, improving * Secondary to pyelonephritis * Acute kidney injury * Likely prerenal due to poor oral intake * Initial BUN 13-->11, creatinine 1.2-->1.1, estimated GFR 58--> greater than 60 * Daily marijuana use Plan * Admit to medical floor * Continue Rocephin 1 g IV every 24 hours * Will hold off on blood cultures unless she develops another fever. * Dilaudid, Toradol, and Tylenol for pain. * Toradol will be dose of 15 mg secondary to her acute kidney injury. Because her acute kidney injury is likely due to poor oral intake there should be very little danger of Toradol worsening her kidney function. We will follow it very closely. * Await urinary culture-> gram negative rods thus far * Follow CBC, CMP, and C-reactive protein daily until stable * Get lactic acid-->1.0 * Continue IV fluids: Normal saline 100 mL/h until good oral intake * Discuss marijuana cessation * Clear liquid diet-> advance to full * VTE prophylaxis not indicated: VTE score 0 * CODE STATUS: Full code * Length of stay likely 1 to 2 more days.
[2019-10-02] MEDS: HYDROmorphone 0.5 MG/0.5 ML Syringe IVPUSH PRN ×2 (08:34→12:12)
[2019-10-02] MEDS: Doxycycline 100 MG in Sodium Chloride 0.9% 100 ML IV SCH (10:14)
[2019-10-02] MEDS: cefTRIAXone 2 GM in Sodium Chloride 0.9% 100 ML IV SCH (14:51)
[2019-10-02] MEDS ORDERED: Metoclopramide 10 MG/2 ML SDV IVPUSH ONE (17:26)
[2019-10-02] MEDS: Acetaminophen 325 MG Tab PO PRN (17:35)
[2019-10-02] MEDS: Doxycycline 100 MG Cap PO SCH (21:12)
[2019-10-03] MEDS: Acetaminophen 325 MG Tab PO PRN (01:10)
--- NOTE | 2019-10-03 07:39 | PCM.PN ---
- General Info Date of Service: 10/03/19 Admission Dx/Problem (Free Text): Admission Diagnosis/Problem Admission Diagnosis/Problem Pyelonephritis Subjective Update: In to see Bernabe. She did spike a fever of 102 last night and blood cultures were obtained. Her urine culture returned E Coli. She reports her back is hurting and that she smokes marijuana due to pack pain 2/2 scoliosis. She requests ibuprofen and this will be ordered. Otherwise she continues to do well. She has been up ambulating. Likely discharge in 24-48 hours pending blood cultures and monitoring of fever. Functional Status: Reports: Pain Controlled, Tolerating Diet, Ambulating, Urinating, New Symptoms (Worsening of chronic back pain ) - Review of Systems General: Reports: No Symptoms. Denies: Fever (overnight but none now), Weakness , Fatigue, Malaise, Chills (overnight but none now) HEENT: Reports: No Symptoms. Denies: Headaches, Sore Throat Pulmonary: Reports: No Symptoms. Denies: Shortness of Breath, Cough, Sputum, Wheezing Cardiovascular: Reports: No Symptoms. Denies: Chest Pain, Palpitations, Dyspnea on Exertion, Edema Gastrointestinal: Reports: No Symptoms. Denies: Abdominal Pain, Constipation, Diarrhea, Nausea, Vomiting Genitourinary: Reports: No Symptoms, Other (Nursing reports white discarge). Denies: Dysuria, Burning, Pain, Urgency, Incontinence Musculoskeletal: Reports: Back Pain (Chronic ) Skin: Reports: No Symptoms Neurological: Reports: No Symptoms. Denies: Confusion, Pre-Existing Deficit, Trouble Speaking, Difficulty Walking, Gait Disturbance Psychiatric: Reports: No Symptoms - Patient Data Vitals - Most Recent: Last Vital Signs Temp 97.7 F 10/03/19 04:24 Pulse 66 10/03/19 04:24 Resp 16 10/03/19 04:24 BP 116/95 H 10/03/19 04:24 Pulse Ox 98 10/03/19 04:24 Weight - Most Recent: 124 lb 6.4 oz I&O - Last 24 Hours: Intake & Output 10/02/19 10/03/19 10/03/19 22:59 06:59 14:59 Intake Total 1120 600 Output Total 575 1300 Balance 545 -700 Lab Results Last 24 Hours: Laboratory Results - last 24 hr 10/02/19 10/03/19 10/03/19 Range/Units 04:52 04:30 04:30 WBC 14.55 H (3.98-10.04) K/mm3 RBC 4.88 (3.98-5.22) M/mm3 Hgb 13.9 (11.2-15.7) gm/dl Hct 42.0 (34.1-44.9) % MCV 86.1 (79.4-94.8) fl MCH 28.5 (25.6-32.2) pg MCHC 33.1 (32.2-35.5) g/dl RDW Std Deviation 42.9 (36.4-46.3) fL Plt Count 233 (182-369) K/mm3 MPV 10.6 (9.4-12.3) fl Neut % (Auto) 84.6 H (34.0-71.1) % Lymph % (Auto) 4.4 L (19.3-51.7) % [place] % (Auto) 10.5 (4.7-12.5) % Eos % (Auto) 0.1 L (0.7-5.8) Baso % (Auto) 0.1 (0.1-1.2) % Neut # (Auto) 12.30 H (1.56-6.13) K/mm3 Lymph # (Auto) 0.64 L (1.18-3.74) K/mm3 [place] # (Auto) 1.53 H (0.24-0.36) K/mm3 Eos # (Auto) 0.02 L (0.04-0.36) K/mm3 Baso # (Auto) 0.02 (0.01-0.08) K/mm3 Manual Slide Review Abnormal smear Abnormal smear Sodium 138 (136-145) mEq/L Potassium 3.6 (3.5-5.1) mEq/L Chloride 101 (98-107) mEq/L Carbon Dioxide 26 (21-32) mEq/L Anion Gap 14.6 (5-15) BUN 12 (7-18) mg/dL Creatinine 1.1 H (0.55-1.02) mg/dL Est Cr Clr Drug Dosing 71.03 mL/min Estimated GFR (MDRD) > 60 (>60) mL/min BUN/Creatinine Ratio 10.9 L (14-18) Glucose 95 (74-106) mg/dL Calcium 9.4 (8.5-10.1) mg/dL Magnesium 2.0 (1.8-2.4) mg/dl Total Bilirubin 0.3 (0.2-1.0) mg/dL AST 19 (15-37) U/L ALT 21 (14-59) U/L Alkaline Phosphatase 66 (46-116) U/L C-Reactive Protein 26.1 H* (<1.0) mg/dL Total Protein 7.7 (6.4-8.2) g/dl Albumin 3.3 L (3.4-5.0) g/dl Globulin 4.4 gm/dL Albumin/Globulin Ratio 0.8 L (1-2) Bobby Results Last 24 Hours: Microbiology 10/01/19 13:21 Urine Culture - Preliminary Urine, Clean Catch Gram Negative Rods Med Orders - Current: Current Medications Acetaminophen (Tylenol) 650 mg PO Q6H PRN PRN Reason: Pain/Fever Last Admin: 10/03/19 01:10 Dose: 650 mg Doxycycline Hyclate (Vibramycin) 100 mg PO BID [facility] Last Admin: 10/02/19 21:12 Dose: 100 mg Hydromorphone HCl (Dilaudid) 1 mg IVPUSH Q2H PRN PRN Reason: Pain (severe 7-10) Last Admin: 10/02/19 12:12 Dose: 1 mg Ceftriaxone Sodium 2 gm/ (Sodium Chloride) 100 mls @ 200 mls/hr IV Q24H [facility] Last Admin: 10/02/19 14:51 Dose: 200 mls/hr Ketorolac Tromethamine (Toradol) 15 mg IVPUSH Q6H PRN PRN Reason: Pain (moderate 4-6) Ondansetron HCl (Zofran) 4 mg IV Q4H PRN PRN Reason: Nausea/Vomiting Last Admin: 10/02/19 15:37 Dose: 4 mg Sodium Chloride (Saline Flush) 10 ml FLUSH ASDIRECTED PRN PRN Reason: Keep Vein Open Last Admin: 10/01/19 14:38 Dose: 10 ml Discontinued Medications Acetaminophen (Tylenol) 650 mg PO Q6H [facility] Stop: 10/02/19 16:00 Last Admin: 10/02/19 10:14 Dose: 650 mg Diatrizoate Meglum/Diatrizoate Sod (Gastrografin 37%) 90 ml PO ONETIME ONE Stop: 10/01/19 14:24 Last Admin: 10/01/19 14:38 Dose: 90 ml Hydromorphone HCl (Dilaudid) 0.5 mg IVPUSH ONETIME ONE Stop: 10/01/19 14:15 Last Admin: 10/01/19 14:20 Dose: 0.5 mg Hydromorphone HCl (Dilaudid) 0.5 mg IVPUSH ONETIME ONE Stop: 10/01/19 14:48 Last Admin: 10/01/19 14:54 Dose: 0.5 mg Hydromorphone HCl (Dilaudid) 1 mg IVPUSH ONETIME ONE Stop: 10/01/19 16:35 Last Admin: 10/01/19 18:02 Dose: Not Given Sodium Chloride (Normal Saline) 1,000 mls @ 1,000 mls/hr IV ONETIME ONE Stop: 10/01/19 13:46 Last Admin: 10/01/19 12:58 Dose: 1,000 mls/hr Piperacillin Sod/Tazobactam (Sod 3.375 gm/ Sodium Chloride) 100 mls @ 200 mls/ hr IV ONETIME ONE Stop: 10/01/19 14:19 Last Admin: 10/01/19 14:11 Dose: 200 mls/hr Ceftriaxone Sodium 2 gm/ (Sodium Chloride) 100 mls @ 200 mls/hr IV ONETIME ONE Stop: 10/01/19 15:46 Last Admin: 10/01/19 15:37 Dose: 200 mls/hr Sodium Chloride (Normal Saline) 1,000 mls @ 1,000 mls/hr IV ONETIME ONE Stop: 10/01/19 16:22 Last Admin: 10/01/19 15:37 Dose: 1,000 mls/hr Doxycycline Hyclate 100 mg/ (Sodium Chloride) 100 mls @ 100 mls/hr IV Q12HR [facility] Last Admin: 10/02/19 10:14 Dose: 100 mls/hr Iopamidol (Isovue-300 (61%)) 100 ml IVPUSH ONETIME ONE Stop: 10/01/19 14:24 Last Admin: 10/01/19 14:38 Dose: 100 ml Metoclopramide HCl (Reglan) 10 mg IVPUSH ONETIME ONE Stop: 10/02/19 17:27 Last Admin: 10/02/19 17:32 Dose: 10 mg Morphine Sulfate (Morphine) 4 mg IVPUSH ONETIME ONE Stop: 10/01/19 12:48 Last Admin: 10/01/19 13:01 Dose: 4 mg Ondansetron HCl (Zofran) 4 mg IVPUSH ONETIME ONE Stop: 10/01/19 12:48 Last Admin: 10/01/19 12:59 Dose: 4 mg Ondansetron HCl (Zofran) 4 mg IVPUSH ONETIME ONE Stop: 10/01/19 16:36 Last Admin: 10/01/19 18:02 Dose: Not Given - Exam General: Alert, Oriented, Cooperative, No Acute Distress HEENT: Pupils Equal, Pupils Reactive, EOMI, Mucous Membr. Moist/[place] Neck: Supple, Trachea Midline Lungs: Clear to Auscultation, Normal Respiratory Effort Cardiovascular: Regular Rate, Regular Rhythm GI/Abdominal Exam: Normal Bowel Sounds, Soft, Non-Tender, No Distention, No Abnormal Bruit (Female) Exam: Deferred Back Exam: Normal Inspection, Full Range of Motion Extremities: Normal Inspection, Normal Range of Motion, Non-Tender, No Pedal Edema, Normal Capillary Refill Peripheral Pulses: 2+: Radial (L), Radial (R), Dorsalis Pedis (L), Dorsalis Pedis (R) Skin: Warm, Dry, Intact Neurological: No New Focal Deficit Psy/Mental Status: Alert, Normal Affect, Normal Mood Sepsis Event Note - Evaluation Sepsis Screening Result: No Definite Risk - Focused Exam Vital Signs: Vital Signs Temp Pulse Resp BP Pulse Ox 10/03/19 04:24 97.7 F 66 16 116/95 H 98 10/03/19 01:10 102.5 F H 10/03/19 01:01 102.6 F H 88 16 116/70 98 10/02/19 21:12 99.3 F 69 16 118/73 97 Date Exam was Performed: 10/03/19 Time Exam was Performed: 11:24 - Problem List & Annotations (1) Pyelonephritis SNOMED Code(s): 65274882 Code(s): N12 - TUBULO-INTERSTITIAL NEPHRITIS, NOT SPCF ACUTE OR CHRONIC Status: Acute Priority: High Current Visit: Yes (2) Chlamydia SNOMED Code(s): 327570390 Code(s): A74.9 - CHLAMYDIAL INFECTION, UNSPECIFIED Status: Acute Priority : High Current Visit: Yes (3) Marijuana abuse SNOMED Code(s): 60135166 Code(s): F12.10 - CANNABIS ABUSE, UNCOMPLICATED Status: Chronic Priority : Medium Current Visit: Yes (4) Fever SNOMED Code(s): 693810472 Code(s): R50.9 - FEVER, UNSPECIFIED Status: Acute Priority: High Current Visit: Yes Qualifiers: Fever type: unspecified Qualified Code(s): R50.9 - Fever, unspecified (5) High anion gap metabolic acidosis SNOMED Code(s): 06611162 Code(s): E87.2 - ACIDOSIS Status: Resolved Priority: High Current Visit : Yes (6) Acute kidney injury SNOMED Code(s): 08150177, 87804152 Code(s): N17.9 - ACUTE KIDNEY FAILURE, UNSPECIFIED Status: Acute Priority : High Current Visit: Yes - Problem List Review Problem List Initiated/Reviewed/Updated: Yes - My Orders Last 24 Hours: My Active Orders 10/02/19 11:12 Acetaminophen [Tylenol] 650 mg PO Q6H PRN 10/02/19 Lunch Regular Diet [DIET] - Plan Plan:: Assessment * Right sided pyelonephritis * Initial WBC 26.8, UA greater than 100 WBC per high-power field with moderate bacteria, temperature 100.8, anion gap 16.9 * CT of the abdomen: Heterogeneous enhancement throughout the right kidney with mild surrounding inflammatory change. Findings are compatible with fairly severe right-sided pyelonephritis. * Urine done in the emergency room * Urin culture - E. Coli * Blood cultures were not done prior to antibiotics being given * Given Rocephin and Zosyn in the emergency room * Anion gap metabolic acidosis, resolved * Secondary to pyelonephritis * Acute kidney injury * Likely prerenal due to poor oral intake * Initial BUN 13-->11, creatinine 1.2-->1.1, estimated GFR 58--> greater than 60 * Daily marijuana use * Reports for back pain 2/2 scoliosis * Fever * 102 temp overnight and chills * Blood cultures obtained * No fevers today Plan * Admit to medical floor * Continue Rocephin 1 g IV every 24 hours * Blood cultures obtained overnight * Dilaudid, ibuprofen, and Tylenol for pain. * Await urinary culture-> E. Coli with good sensitivities to Rocephin * Follow CBC, CMP, and C-reactive protein daily until stable * Get lactic acid-->1.0 * Continue IV fluids: Normal saline 100 mL/h until good oral intake -> discontinued * Discuss marijuana cessation * Clear liquid diet-> advance to full * VTE prophylaxis not indicated: VTE score 0 * CODE STATUS: Full code * Length of stay likely 1 to 2 more days awaiting blood cultures 2/2 overnight fever.
[2019-10-03] MEDS ORDERED: Fluconazole 150 MG Tab PO ONE (08:00)
[2019-10-03] MEDS: Doxycycline 100 MG Cap PO SCH ×2 (08:53→20:36)
[2019-10-03] MEDS ORDERED: Ibuprofen 600 MG Tab PO PRN (11:22)
[2019-10-03] MEDS: cefTRIAXone 2 GM in Sodium Chloride 0.9% 100 ML IV SCH (15:04)
[2019-10-04] MEDS ORDERED: Potassium Chloride 20 MEQ Tab.ER PO ONE (07:10)
[2019-10-04] MEDS: Doxycycline 100 MG Cap PO SCH (08:31)
[2019-10-04] MEDS ORDERED: Azithromycin 250 MG Tab PO ONE (12:02)
--- NOTE | 2019-10-04 12:12 | PCM.DCSUM1 ---
Discharge Summary - Hospital Course HPI Initial Comments: 18-year-old female that presented to the emergency room this afternoon with right lower quadrant and flank pain with chills. Patient states that on Wednesday she developed a fever of 103, right lower quadrant and flank pain, and then on Wednesday started developing chills. She denies any dysuria, urinary frequency, or hematuria. She states on Wednesday night, Wednesday morning she developed vomiting and vomited into the vice [employer] of contracts on Wednesday. This is when she did present herself to the emergency room. She states that she has been unable to keep any food or fluids down for the last 24+ hours. Patient complains of severe lower abdominal pain. Patient is sexually active. She has a Mirena in place for control. Menstrual period in May. In the emergency room she was found to have a positive UA with greater than 100 WBCs per high-power field, positive nitrites, 10-20 epithelial cells, moderate bacteria, and 50-[address] scan done of the abdomen and pelvis showed impression: 1. Heterogeneous enhancement throughout the right kidney with mild surrounding inflammatory change. Findings are compatible with fairly severe right-sided pyelonephritis. 2. No other acute finding is seen on CT study of the abdomen and pelvis. Other pertinent positives include: WBC 26.83 with 24.8 absolute neutrophils and 92.4% neutrophils, creatinine 1.2 with an estimated GFR 58. Pertinent negative includes negative hCG, normal liver function tests, hemoglobin 14.5, platelets of 244. In the emergency room patient was given Zosyn and ceftriaxone. She was also given 2 L normal saline boluses and started on 100 mL of normal saline per hour. Patient was also given Dilaudid and morphine for her pain which did not seem to help her pain. Lactic acid was not drawn. Her Chlamydia screen did come back positive. She will be started on doxycycline 100 mg twice daily secondary to contraindication of azithromycin with Zofran. Diagnosis: Stroke: No - Discharge Data Discharge Date: 10/04/19 Discharge Disposition: Home, Self-Care 01 Condition: Good - Referral to Home Health Primary Care Physician: PCP None - Patient Summary/Data Hospital Course: Patient was admitted for IV antibiotics and fluids. She had significant improvement but on day 2 she did have another fever. Blood cultures were drawn and are negative so far. White count dropped to normal on day of discharge and she was afebrile for over 36 hours. Patient received another dose of Rocephin just prior to discharge. Urine culture was positive for E. coli sensitive to everything but Bactrim. Patient was also treated with 1 g azithromycin on day of discharge for her chlamydia STI. Patient was counseled by nursing in regards to her chlamydia infection. - Patient Instructions Diet: Usual Diet as Tolerated Activity: As Tolerated Driving: May Drive Today Showering/Bathing: May Shower Other/Special Instructions: Follow up with PCP in 1 - 2 weeks. - Discharge Plan *PRESCRIPTION DRUG MONITORING PROGRAM REVIEWED*: No *COPY OF PRESCRIPTION DRUG MONITORING REPORT IN PATIENT ANGELIKA: No Prescriptions/Med Rec: Cefdinir [Omnicef] 300 mg PO BID #16 cap Home Medications: Home Meds Cefdinir [Omnicef] 300 mg PO BID #16 cap 10/04/19 [Rx] Patient Handouts: Sepsis, Adult, What You Need to Know About Marijuana Use, Finding Treatment for Addiction, Steps to Quit Smoking Forms: ED Department Discharge Referrals: PCP,None [Primary Care Provider] - - Discharge Summary/Plan Comment DC Time >30 min.: Yes Discharge Summary/Plan Comment: Cefdinir 300 mg twice daily for another 8 days for pyelonephritis. Follow-up with primary care provider in 1 to 2 weeks. - General Info Date of Service: 10/04/19 Admission Dx/Problem (Free Text: Admission Diagnosis/Problem Admission Diagnosis/Problem Pyelonephritis Subjective Update: Patient is doing well without any fever, chills, or night sweats. Her appetite is normal. She would like to go home. Functional Status: Reports: Pain Controlled - Review of Systems General: Reports: No Symptoms HEENT: Reports: No Symptoms Pulmonary: Reports: No Symptoms Cardiovascular: Reports: No Symptoms Gastrointestinal: Reports: No Symptoms Musculoskeletal: Reports: No Symptoms - Patient Data Vitals - Most Recent: Last Vital Signs Temp 98.1 F 10/04/19 08:27 Pulse 76 10/04/19 08:27 Resp 22 H 10/04/19 08:27 BP 128/80 10/04/19 08:27 Pulse Ox 95 10/04/19 08:27 Weight - Most Recent: 123 lb 6.4 oz I&O - Last 24 hours: Intake & Output 10/03/19 10/04/19 10/04/19 22:59 06:59 14:59 Intake Total 440 800 440 Output Total 750 500 Balance -310 300 440 Lab Results - Last 24 hrs: Laboratory Results - last 24 hr 10/04/19 10/04/19 Range/Units 05:03 05:03 WBC 6.00 (3.98-10.04) K/mm3 RBC 4.56 (3.98-5.22) M/mm3 Hgb 12.9 (11.2-15.7) gm/dl Hct 39.1 (34.1-44.9) % MCV 85.7 (79.4-94.8) fl MCH 28.3 (25.6-32.2) pg MCHC 33.0 (32.2-35.5) g/dl RDW Std Deviation 42.8 (36.4-46.3) fL Plt Count 257 (182-369) K/mm3 MPV 10.1 (9.4-12.3) fl Neut % (Auto) 75.7 H (34.0-71.1) % Lymph % (Auto) 9.7 L (19.3-51.7) % [place] % (Auto) 13.3 H (4.7-12.5) % Eos % (Auto) 0.2 L (0.7-5.8) Baso % (Auto) 0.3 (0.1-1.2) % Neut # (Auto) 4.54 (1.56-6.13) K/mm3 Lymph # (Auto) 0.58 L (1.18-3.74) K/mm3 [place] # (Auto) 0.80 H (0.24-0.36) K/mm3 Eos # (Auto) 0.01 L (0.04-0.36) K/mm3 Baso # (Auto) 0.02 (0.01-0.08) K/mm3 Manual Slide Review Abnormal smear Sodium 138 (136-145) mEq/L Potassium 3.1 L (3.5-5.1) mEq/L Chloride 101 (98-107) mEq/L Carbon Dioxide 24 (21-32) mEq/L Anion Gap 16.1 H (5-15) BUN 13 (7-18) mg/dL Creatinine 1.1 H (0.55-1.02) mg/dL Est Cr Clr Drug Dosing 71.03 mL/min Estimated GFR (MDRD) > 60 (>60) mL/min BUN/Creatinine Ratio 11.8 L (14-18) Glucose 93 (74-106) mg/dL Calcium 9.0 (8.5-10.1) mg/dL Magnesium 1.9 (1.8-2.4) mg/dl Total Bilirubin 0.3 (0.2-1.0) mg/dL AST 15 (15-37) U/L ALT 19 (14-59) U/L Alkaline Phosphatase 55 (46-116) U/L C-Reactive Protein 17.5 H* (<1.0) mg/dL Total Protein 7.4 (6.4-8.2) g/dl Albumin 3.1 L (3.4-5.0) g/dl Globulin 4.3 gm/dL Albumin/Globulin Ratio 0.7 L (1-2) BEKAH Results - Last 24 hrs: Microbiology 10/03/19 01:30 Aerobic Blood Culture - Preliminary Blood - Venous - Lab Draw NO GROWTH AFTER 1 DAY Anaerobic Blood Culture - Preliminary NO GROWTH AFTER 1 DAY 10/03/19 01:20 Aerobic Blood Culture - Preliminary Blood - Venous NO GROWTH AFTER 1 DAY Anaerobic Blood Culture - Preliminary NO GROWTH AFTER 1 DAY 10/01/19 13:21 Urine Culture - Final Urine, Clean Catch Escherichia Coli Med Orders - Current: Current Medications Acetaminophen (Tylenol) 650 mg PO Q6H PRN PRN Reason: Pain/Fever Last Admin: 10/03/19 01:10 Dose: 650 mg Hydromorphone HCl (Dilaudid) 1 mg IVPUSH Q2H PRN PRN Reason: Pain (severe 7-10) Last Admin: 10/02/19 12:12 Dose: 1 mg Ceftriaxone Sodium 2 gm/ (Sodium Chloride) 100 mls @ 200 mls/hr IV Q24H SEAN Last Admin: 10/03/19 15:04 Dose: 200 mls/hr Ibuprofen (Motrin) 600 mg PO Q6H PRN PRN Reason: Pain Last Admin: 10/03/19 11:51 Dose: 600 mg Sodium Chloride (Saline Flush) 10 ml FLUSH ASDIRECTED PRN PRN Reason: Keep Vein Open Last Admin: 10/01/19 14:38 Dose: 10 ml Discontinued Medications Acetaminophen (Tylenol) 650 mg PO Q6H SEAN Stop: 10/02/19 16:00 Last Admin: 10/02/19 10:14 Dose: 650 mg Azithromycin (Zithromax) 1,000 mg PO ONETIME ONE Stop: 10/04/19 12:03 Diatrizoate Meglum/Diatrizoate Sod (Gastrografin 37%) 90 ml PO ONETIME ONE Stop: 10/01/19 14:24 Last Admin: 10/01/19 14:38 Dose: 90 ml Doxycycline Hyclate (Vibramycin) 100 mg PO BID SEAN Last Admin: 10/04/19 08:31 Dose: 100 mg Fluconazole (Diflucan) 150 mg PO ONETIME ONE Stop: 10/03/19 08:01 Last Admin: 10/03/19 08:53 Dose: 150 mg Hydromorphone HCl (Dilaudid) 0.5 mg IVPUSH ONETIME ONE Stop: 10/01/19 14:15 Last Admin: 10/01/19 14:20 Dose: 0.5 mg Hydromorphone HCl (Dilaudid) 0.5 mg IVPUSH ONETIME ONE Stop: 10/01/19 14:48 Last Admin: 10/01/19 14:54 Dose: 0.5 mg Hydromorphone HCl (Dilaudid) 1 mg IVPUSH ONETIME ONE Stop: 10/01/19 16:35 Last Admin: 10/01/19 18:02 Dose: Not Given Sodium Chloride (Normal Saline) 1,000 mls @ 1,000 mls/hr IV ONETIME ONE Stop: 10/01/19 13:46 Last Admin: 10/01/19 12:58 Dose: 1,000 mls/hr Piperacillin Sod/Tazobactam (Sod 3.375 gm/ Sodium Chloride) 100 mls @ 200 mls/ hr IV ONETIME ONE Stop: 10/01/19 14:19 Last Admin: 10/01/19 14:11 Dose: 200 mls/hr Ceftriaxone Sodium 2 gm/ (Sodium Chloride) 100 mls @ 200 mls/hr IV ONETIME ONE Stop: 10/01/19 15:46 Last Admin: 10/01/19 15:37 Dose: 200 mls/hr Sodium Chloride (Normal Saline) 1,000 mls @ 1,000 mls/hr IV ONETIME ONE Stop: 10/01/19 16:22 Last Admin: 10/01/19 15:37 Dose: 1,000 mls/hr Doxycycline Hyclate 100 mg/ (Sodium Chloride) 100 mls @ 100 mls/hr IV Q12HR SEAN Last Admin: 10/02/19 10:14 Dose: 100 mls/hr Iopamidol (Isovue-300 (61%)) 100 ml IVPUSH ONETIME ONE Stop: 10/01/19 14:24 Last Admin: 10/01/19 14:38 Dose: 100 ml Ketorolac Tromethamine (Toradol) 15 mg IVPUSH Q6H PRN PRN Reason: Pain (moderate 4-6) Metoclopramide HCl (Reglan) 10 mg IVPUSH ONETIME ONE Stop: 10/02/19 17:27 Last Admin: 10/02/19 17:32 Dose: 10 mg Morphine Sulfate (Morphine) 4 mg IVPUSH ONETIME ONE Stop: 10/01/19 12:48 Last Admin: 10/01/19 13:01 Dose: 4 mg Ondansetron HCl (Zofran) 4 mg IVPUSH ONETIME ONE Stop: 10/01/19 12:48 Last Admin: 10/01/19 12:59 Dose: 4 mg Ondansetron HCl (Zofran) 4 mg IVPUSH ONETIME ONE Stop: 10/01/19 16:36 Last Admin: 10/01/19 18:02 Dose: Not Given Ondansetron HCl (Zofran) 4 mg IV Q4H PRN PRN Reason: Nausea/Vomiting Last Admin: 10/02/19 15:37 Dose: 4 mg Potassium Chloride (Klor-Con M20) 40 meq PO ONETIME ONE Stop: 10/04/19 07:11 Last Admin: 10/04/19 08:30 Dose: 40 meq - Exam General: Reports: Alert, Oriented HEENT: Reports: Pupils Equal, Pupils Reactive, EOMI, Mucous Membr. Moist/[employer] Neck: Reports: Supple Lungs: Reports: Clear to Auscultation, Normal Respiratory Effort Cardiovascular: Reports: Regular Rate, Regular Rhythm GI/Abdominal Exam: Normal Bowel Sounds, Soft, Non-Tender, No Organomegaly, No Distention, No Abnormal Bruit, No Mass Back Exam: Reports: Normal Inspection, Full Range of Motion. Denies: CVA Tenderness (R) Extremities: Normal Inspection, Normal Range of Motion, Non-Tender, No Pedal Edema, Normal Capillary Refill
[2019-10-04] MEDS: cefTRIAXone 2 GM in Sodium Chloride 0.9% 100 ML IV SCH (14:17)
== END 2019-10-04 14:55 | disposition home or self-care (01) | DRG 690 ==
LOC: JD.ED 12:32 → JD.MS 15:29
PROVIDERS: ADMIT Family Medicine; ATTEND Family Medicine
DX: N12 Tubulo-interstitial nephritis, not specified as acute or chronic (principal); E87.2 Acidosis; A56.8 Sexually transmitted chlamydial infection of other sites; N17.9 Acute kidney failure, unspecified; B96.20 Unspecified Escherichia coli [E. coli] as the cause of diseases classified elsewhere; F12.10 Cannabis abuse, uncomplicated; F17.200 Nicotine dependence, unspecified, uncomplicated
CPT/HCPCS: 36415; 74177; 74177-26; 80053; 81001; 83605; 83735; 84703; 85025; 86140; 87040; 87086; 87088; 87186; 87491; 87591; 96361; 96365; 96375; 96376; 99284; 99285-25; A9270-GY; J0696; J1170; J2270; J2405; J2543; J2765; J3490; J7030; J7050; Q9963; Q9967